=== PATIENT | female | born 1985 | race African-American/Black ===

== ENCOUNTER 2025-06-04 08:45 | Emergency (ER) | payer BC, OTHER ==
[~2025-06-04] VITALS: Ht 167.6 cm; Wt 82.0 kg
[2025-06-04 08:49] VITALS: O2SAT 100
[2025-06-04 09:09] LABS: BASOPHILS % 0.6 % (0.0-2.0); EOSINOPHILS % 1.9 % (0.0-5.0); HEMATOCRIT. 35.0 % (36.0-48.0); HEMOGLOBIN. 11.5 g/dL (12.0-16.0); LYMPHOCYTES % 50.1 % (20.0-50.0); MEAN PLATELET VOLUME 7.8 fl (7.4-10.4); MONOCYTES % 5.9 % (2.0-8.0); NEUTROPHILS % 41.5 % (40.0-76.0); PLATELET 186 x1000/uL (130-400); RED BLOOD CELL COUNT 4.24 mill/uL (4.2-5.4); RED CELL DISTRIBUTION WIDTH 14.5 % (11.6-14.6)
[2025-06-04 09:31] LABS: CREATININE 0.8 mg/dL (0.6-1.0)
[2025-06-04 09:32] LABS: UREA NITROGEN BLOOD 13 mg/dL (9-23)
[2025-06-04 09:33] LABS: TROPONIN I HIGH SENSITIVITY < 4 ng/L (3.0-34)
[2025-06-04] MEDS: LIDOCAINE 5% PATCH TOP SCH (11:00)
[2025-06-04] MEDS: KETOROLAC 30MG/ML VIAL IM ONE (11:06)
[2025-06-04 11:07] VITALS: BP 156/99; PULSE 98; RESP 17; TEMP 36.9; O2SAT 100
== END 2025-06-04 11:08 | disposition home or self-care (01) ==
LOC: ER 09:40
DX: I10 Essential (primary) hypertension (principal); M94.0 Chondrocostal junction syndrome [Tietze]
CPT/HCPCS: 36415; 71045; 80048; 84484; 85025; 93005; 99285